=== PATIENT | female | born 2000 | race Caucasian/White ===

== ENCOUNTER 2021-04-14 01:01 | Inpatient (IN) | payer BC ==
[2021-04-14] MEDS ORDERED: Acetaminophen 500 MG TAB ONE (01:19)
[2021-04-14] MEDS ORDERED: Vancomycin 1 GM/200 ML BAG ONE (01:46)
[2021-04-14] MEDS ORDERED: Benzonatate 100 MG CAP ONE (02:15)
[2021-04-14] MEDS ORDERED: Senokot S 8.6-50 MG TAB PO PRN (08:06)
[2021-04-14] MEDS ORDERED: Acetaminophen 325 MG TAB PO PRN (08:06)
[2021-04-14] MEDS ORDERED: Enoxaparin Sodium 40 MG/0.4 ML SYRINGE ONE (12:47)
[2021-04-14] MEDS: Enoxaparin Sodium 40 MG/0.4 ML SYRINGE SC SCH (13:08)
[2021-04-14] MEDS ORDERED: cefTRIAXone\\ROCEPHIN 1 GM VIAL ONE (13:24)
[2021-04-14 13:46] LABS: #Eosinphils 0.1 thou/uL (0.0-0.7); #Lymphocytes 0.9 thou/uL (1.20-3.40); #Monocytes 0.9 thou/uL (0.11-0.59); #Neutrophils 5.2 thou/uL (1.40-6.50); %Basophils 0.3 % (0.0-1.0); %Eosinophils 1.2 % (0.0-10.0); %Lymphocytes 12.9 % (28.0-48.0); %Monocytes 12.1 % (0.0-4.0); %Neutrophils 73.5 % (31.0-61.0); Hemoglobin 8.3 g/dL (12.0-16.0); Mean Corpuscular HGB CONC 33.3 g/dL (32.0-36.0); Mean Corpuscular Hemoglobin 27.6 pg (25.0-35.0); Mean Corpuscular Volume 82.9 fL (78.0-98.0); Mean Platelet Volume 10.7 fL (7.4-10.4); Platelet Count 158 thou/uL (130-400); RBC Distribution Width 16.2 % (11.5-14.5); White Blood Cell (WBC) Count 7.1 thou/uL (4.8-10.8)
[2021-04-14] MEDS ORDERED: Azithromycin 500 MG in Sodium Chloride 0.9% 250 ML 250 ML IVPB SCH (14:00)
[2021-04-14 14:10] LABS: ALT (SGPT) 8 U/L (8-55); AST (SGOT) 15 U/L (5-30); Albumin 1.8 g/dL (3.5-5.0); Alkaline Phosphatase 41 U/L (40-100); Anion Gap 11 mmol/L (10-20); BUN (Urea Nitrogen) 26 mg/dL (8.4-21.0); Bilirubin, Total 0.2 mg/dL (0.2-1.2); CRP (Inflammatory) 12.42 mg/dL (= or < 0.5); Calc. Creatinine Clearance 0 mL/min (70-130); Calcium 7.5 mg/dL (7.8-10.44); Carbon Dioxide 22 mmol/L (22-29); Chloride 109 mmol/L (98-107); Globulin 2.7 g/dL (2.4-3.5); Glucose 91 mg/dL (70-105); Potassium 3.9 mmol/L (3.5-5.1); Protein, Total 4.5 g/dL (6.0-8.3); Sodium 138 mmol/L (136-145)
[2021-04-14] MEDS ORDERED: Azithromycin 500 MG VIAL ONE (14:13)
[2021-04-14] MEDS: Sodium Chloride 0.9% 1,000 ML IV SCH (14:20)
[2021-04-14] MEDS ORDERED: Ondansetron PF 4 MG/2 ML Vial ONE (14:36)
[2021-04-14] MEDS ORDERED: Ondansetron PF 4 MG/2 ML Vial IVP SCH (14:45)
[2021-04-14 17:40] VITALS: BMI 25.7
[2021-04-14] MEDS ORDERED: methylPREDNISolone Sod Succ/PF 125 MG/2 ML VIAL IVP SCH (18:45)
[2021-04-15] MEDS: Sodium Chloride 0.9% 1,000 ML IV SCH ×2 (00:35→15:05)
[2021-04-15 04:55] LABS: #Basophils 0.1 thou/uL (0.0-0.2); #Lymphocytes 0.5 thou/uL (1.20-3.40); #Monocytes 0.2 thou/uL (0.11-0.59); #Neutrophils 5.2 thou/uL (1.40-6.50); %Basophils 1.2 % (0.0-1.0); %Eosinophils 0.2 % (0.0-10.0); %Lymphocytes 8.3 % (28.0-48.0); %Monocytes 3.6 % (0.0-4.0); %Neutrophils 86.7 % (31.0-61.0); Hemoglobin 10.1 g/dL (12.0-16.0); Mean Corpuscular HGB CONC 32.8 g/dL (32.0-36.0); Mean Corpuscular Hemoglobin 27.5 pg (25.0-35.0); Mean Corpuscular Volume 83.8 fL (78.0-98.0); Mean Platelet Volume 10.9 fL (7.4-10.4); Platelet Count 207 thou/uL (130-400); Red Blood Cell (RBC) Count 3.69 mill/uL (4.00-5.20)
[2021-04-15 05:19] LABS: Anion Gap 14 mmol/L (10-20); BUN (Urea Nitrogen) 31 mg/dL (8.4-21.0); Calc. Creatinine Clearance 53 mL/min (70-130); Calcium 7.8 mg/dL (7.8-10.44); Carbon Dioxide 20 mmol/L (22-29); Chloride 110 mmol/L (98-107); Glucose 103 mg/dL (70-105); Potassium 4.4 mmol/L (3.5-5.1); Sodium 140 mmol/L (136-145)
[2021-04-15] MEDS: Azithromycin 250 MG TAB PO SCH (09:15)
[2021-04-15] MEDS: Enoxaparin Sodium 40 MG/0.4 ML SYRINGE SC SCH (09:16)
[2021-04-15] MEDS: methylPREDNISolone Sod Succ/PF 125 MG/2 ML VIAL IVP SCH (09:16)
[2021-04-15 11:22] LABS: Creatinine, Urine 341.91 mg/dL (47-110)
[2021-04-15] MEDS: cefTRIAXone\\ROCEPHIN 1 GM in Sodium Chloride 0.9% 100 ML IVPB SCH (13:58)
[2021-04-15] MEDS ORDERED: FLU VACC QS2021-22(6MOS UP)/PF 60 MCG/0.5 ML SYRINGE IM ONE (18:30)
[2021-04-15 18:41] LABS: ANA Symphony (Qualitative) POSITIVE (Negative); ANA Symphony (Quantitative) Greater than 32.0 Ratio (< 0.7 Negative); CENP IgG Antibody Less than 0.4 EliAU/mL (<7 Negative); Jo-1 IgG Antibody Less than 0.3 EliAU/mL (<7 Negative); RNP70 IgG Antibody Less than 0.3 EliAU/mL (<7 Negative); SSA/Ro IgG Antibody Greater than 240.0 EliAU/mL (<7 Negative); SSB/La IgG Antibody 1.4 EliAU/mL (<7 Negative); Scleroderma-70 IgG Antibody 1.7 EliAU/mL (<7 Negative); Smith D IgG Antibody 0.9 EliAU/mL (<7 Negative)
[2021-04-15] MEDS: Sodium Bicarbonate Tab 325 MG TAB PO SCH (21:02)
[2021-04-15] MEDS ORDERED: Albumin 25% 25 GM/100 ML BOT IVPB SCH (21:15)
[2021-04-15 22:08] LABS: Bacteria/HPF 4+ HPF (None Seen); Bilirubin Negative (Negative); Blood, Urine 2+ (Negative); Clarity Turbid (Clear); Glucose, Urine (Dipstick) Normal (Negative); Ketone, Urine Negative (Negative); Leukocyte 75 Leu/uL (Negative); Nitrite Negative (Negative); Protein, Urine (Dipstick) 200 mg/dL (Neg-Trace); RBC/HPF 21-50 HPF (0-3); Renal Epithelial 0-3 HPF (None Seen); Specific Gravity, Urine 1.022 (1.002-1.036); Squamous Epithelial 0-3 HPF (0-3); Urobilinogen Normal mg/dL (Less than 2); WBC/HPF Greater than 50 HPF (0-3); pH, Urine 5.5 (5.0-9.0)
[2021-04-15 22:09] LABS: Urine Culture Reflex Yes Yes
[2021-04-15 22:24] LABS: Creatinine, Urine 160.93 mg/dL (47-110)
[2021-04-16] MEDS: Guaifenesin DM 100-10/5 ML UDCUP PO PRN ×2 (06:03→10:12)
[2021-04-16] MEDS: Enoxaparin Sodium 40 MG/0.4 ML SYRINGE SC SCH (08:52)
[2021-04-16] MEDS: Azithromycin 250 MG TAB PO SCH (08:52)
[2021-04-16] MEDS: Sodium Bicarbonate Tab 325 MG TAB PO SCH ×2 (08:52→19:45)
[2021-04-16] MEDS: methylPREDNISolone Sod Succ/PF 125 MG/2 ML VIAL IVP SCH (08:53)
[2021-04-16] MEDS ORDERED: methylPREDNISolone Sod Succ/PF 125 MG/2 ML VIAL IVP SCH (09:45)
[2021-04-16] MEDS ORDERED: Fentanyl 100 MCG/2 ML VIAL ONE (12:25)
[2021-04-16] MEDS ORDERED: cefTRIAXone\\ROCEPHIN 1 GM VIAL ONE (12:53)
[2021-04-16] MEDS ORDERED: Sodium Chloride 0.9% 100 ML ONE (12:53)
[2021-04-16] MEDS ORDERED: Midazolam HCl 2 mg/2 ml Vial ONE (12:56)
[2021-04-16] MEDS: cefTRIAXone\\ROCEPHIN 1 GM in Sodium Chloride 0.9% 100 ML IVPB SCH (13:00)
[2021-04-16] MEDS ORDERED: Lidocaine 1% PF 5 ML VIAL ONE (13:21)
[2021-04-16] MEDS ORDERED: Rocuronium Bromide 10 MG/ML (10ML VIAL) ONE (13:21)
[2021-04-16] MEDS ORDERED: Dexamethasone 20 MG/5 ML VIAL ONE (13:21)
[2021-04-16] MEDS ORDERED: PROPOFOL 200 MG/20 ML VIAL ONE (13:21)
[2021-04-16] MEDS ORDERED: Ondansetron PF 4 MG/2 ML Vial ONE (13:21)
[2021-04-16] MEDS ORDERED: hydrALAZINE 20 MG/ML VIAL ONE (13:49)
[2021-04-16] MEDS ORDERED: HYDROmorphone 0.5 MG/0.5 ML SYRINGE ONE (14:16)
[2021-04-16] MEDS ORDERED: HYDROmorphone 2 MG/ML VIAL SLOW IVP PRN (14:24)
[2021-04-16] MEDS ORDERED: Promethazine HCl 25 MG/ML VIAL IVPB PRN (14:24)
[2021-04-16] MEDS ORDERED: Ondansetron HCl/PF 4 MG/2 ML Vial IVP PRN (14:24)
[2021-04-16] MEDS ORDERED: Promethazine HCl 25 MG/ML VIAL IM PRN (14:24)
[2021-04-16] MEDS ORDERED: HYDROcodone/Acetaminophen 5/325 mg Tablet PO PRN (15:02)
[2021-04-16] MEDS ORDERED: Fentanyl 100 MCG/2 ML VIAL SLOW IVP PRN (15:02)
[2021-04-16 15:31] LABS: Fluid, Glucose 120 mg/dL (Not Available); Fluid, LDH 241 U/L (Not Available)
[2021-04-16 15:35] LABS: RBC Count-Automated (BF) 395 /cu.mm; WBC/Nucleated-Auto (BF) 10 uL
[2021-04-16 15:57] LABS: #Lymphocytes 0.8 thou/uL (1.20-3.40); #Monocytes 0.2 thou/uL (0.11-0.59); #Neutrophils 14.5 thou/uL (1.40-6.50); %Basophils 0.1 % (0.0-1.0); %Eosinophils 0.2 % (0.0-10.0); %Lymphocytes 4.9 % (28.0-48.0); %Monocytes 1.2 % (0.0-4.0); %Neutrophils 93.7 % (31.0-61.0); Hemoglobin 9.6 g/dL (12.0-16.0); Mean Corpuscular HGB CONC 32.7 g/dL (32.0-36.0); Mean Corpuscular Volume 82.3 fL (78.0-98.0); Mean Platelet Volume 9.4 fL (7.4-10.4); Platelet Count 343 thou/uL (130-400); RBC Distribution Width 16.4 % (11.5-14.5); Red Blood Cell (RBC) Count 3.54 mill/uL (4.00-5.20); White Blood Cell (WBC) Count 15.5 thou/uL (4.8-10.8)
[2021-04-16 16:02] LABS: Anion Gap 13 mmol/L (10-20); BUN (Urea Nitrogen) 37 mg/dL (8.4-21.0); Calc. Creatinine Clearance 61 mL/min (70-130); Calcium 7.9 mg/dL (7.8-10.44); Carbon Dioxide 20 mmol/L (22-29); Chloride 116 mmol/L (98-107); Glucose 133 mg/dL (70-105); Potassium 4.4 mmol/L (3.5-5.1); Sodium 145 mmol/L (136-145)
[2021-04-16 16:11] LABS: PTT 19.2 sec (22.9-36.1)
[2021-04-16 16:14] LABS: BF Color Yellow; Body Fluid Source Pericardial Fluid; Clarity Clear (Clear); Tube # EDTA
[2021-04-16 16:17] LABS: BF Segmented Neutrophils 9 %; Cell Count Non Hematic 54 %; Lymphocytes 37 %
[2021-04-16 16:46] LABS: Albumin 2.3 g/dL (3.5-5.0); Cardiac Risk 11.3 (Less than 4.5); Cholesterol 270 mg/dl (< 200 Desired); HDL Cholesterol 24 mg/dL (>60 Neg Risk); LDL Cholesterol, Calculated 193 mg/dL; Phosphorus 4.8 mg/dL (2.3-4.7); Triglycerides 267 mg/dL (Less than 150)
[2021-04-16] MEDS: HYDROcodone/Acetaminophen 5/325 mg Tablet PO PRN ×2 (16:55→20:46)
[2021-04-16] MEDS ORDERED: Albumin 25% 25 GM/100 ML BOT IVPB SCH (17:00)
[2021-04-16] MEDS ORDERED: Morphine 4 MG/ML VIAL SLOW IVP PRN (20:30)
[2021-04-16] MEDS: Morphine 2 MG/ML VIAL SLOW IVP PRN (20:35)
[2021-04-16] MEDS ORDERED: Ondansetron PF 4 MG/2 ML Vial IVP PRN (20:46)
[2021-04-17] MEDS: HYDROcodone/Acetaminophen 5/325 mg Tablet PO PRN ×3 (01:02→21:38)
[2021-04-17] MEDS: Morphine 2 MG/ML VIAL SLOW IVP PRN (08:54)
[2021-04-17] MEDS ORDERED: Carvedilol 6.25 MG TAB PO SCH (09:00)
[2021-04-17] MEDS: Enoxaparin Sodium 40 MG/0.4 ML SYRINGE SC SCH (09:02)
[2021-04-17] MEDS: methylPREDNISolone Sod Succ/PF 125 MG/2 ML VIAL IVP SCH (09:03)
[2021-04-17] MEDS: Azithromycin 250 MG TAB PO SCH (09:53)
[2021-04-17] MEDS: Sodium Bicarbonate Tab 325 MG TAB PO SCH ×2 (09:54→21:37)
[2021-04-17] MEDS ORDERED: ALPRAZolam 0.25 MG TAB PO SCH (10:30)
[2021-04-17] MEDS ORDERED: ALPRAZolam 0.25 MG TAB PO PRN (11:19)
[2021-04-17 14:30] LABS: Prothrombin Time 13.3 sec (12.0-14.7)
[2021-04-17 14:31] LABS: PTT 25.6 sec (22.9-36.1)
[2021-04-17 14:42] LABS: Albumin 2.3 g/dL (3.5-5.0); Anion Gap 10 mmol/L (10-20); BUN (Urea Nitrogen) 36 mg/dL (8.4-21.0); BUN/Creatinine Ratio 21.95; Calc. Creatinine Clearance 71 mL/min (70-130); Calcium 8.2 mg/dL (7.8-10.44); Carbon Dioxide 21 mmol/L (22-29); Chloride 110 mmol/L (98-107); Glucose 132 mg/dL (70-105); Phosphorus 5.2 mg/dL (2.3-4.7); Sodium 137 mmol/L (136-145)
[2021-04-17 14:44] LABS: Iron Binding Capacity, Total 164 mcg/dL (265-497)
[2021-04-17 14:47] LABS: Iron Less than 8 ug/dL (50-170)
[2021-04-17] MEDS: cefTRIAXone\\ROCEPHIN 1 GM in Sodium Chloride 0.9% 100 ML IVPB SCH (15:39)
[2021-04-17] MEDS ORDERED: NIFEdipine XL 30 MG TAB PO SCH ×2 (16:30→16:45)
[2021-04-18] MEDS ORDERED: Metoprolol Tartrate 25 MG TAB PO SCH (00:24)
[2021-04-18 05:14] LABS: #Lymphocytes 1.4 thou/uL (1.20-3.40); #Monocytes 1.7 thou/uL (0.11-0.59); #Neutrophils 10.6 thou/uL (1.40-6.50); %Basophils 0.2 % (0.0-1.0); %Eosinophils 0.2 % (0.0-10.0); %Lymphocytes 10.4 % (28.0-48.0); %Monocytes 12.2 % (0.0-4.0); Hemoglobin 8.4 g/dL (12.0-16.0); Mean Corpuscular HGB CONC 31.8 g/dL (32.0-36.0); Mean Corpuscular Hemoglobin 26.8 pg (25.0-35.0); Mean Corpuscular Volume 84.1 fL (78.0-98.0); Mean Platelet Volume 9.3 fL (7.4-10.4); Platelet Count 273 thou/uL (130-400); RBC Distribution Width 16.4 % (11.5-14.5); Red Blood Cell (RBC) Count 3.15 mill/uL (4.00-5.20); White Blood Cell (WBC) Count 13.8 thou/uL (4.8-10.8)
[2021-04-18 05:34] LABS: Albumin 1.9 g/dL (3.5-5.0); Anion Gap 8 mmol/L (10-20); BUN (Urea Nitrogen) 38 mg/dL (8.4-21.0); BUN/Creatinine Ratio 25.85; Calc. Creatinine Clearance 80 mL/min (70-130); Calcium 7.8 mg/dL (7.8-10.44); Carbon Dioxide 23 mmol/L (22-29); Chloride 111 mmol/L (98-107); Glucose 109 mg/dL (70-105); Phosphorus 4.9 mg/dL (2.3-4.7); Potassium 3.8 mmol/L (3.5-5.1); Sodium 138 mmol/L (136-145)
[2021-04-18] MEDS ORDERED: NIFEdipine XL 60 MG TAB PO SCH (06:15)
[2021-04-18] MEDS ORDERED: NIFEdipine XL 30 MG TAB PO SCH (09:00)
[2021-04-18] MEDS: Sodium Bicarbonate Tab 325 MG TAB PO SCH ×2 (09:09→21:22)
[2021-04-18] MEDS: Azithromycin 250 MG TAB PO SCH (09:10)
[2021-04-18] MEDS: methylPREDNISolone Sod Succ/PF 125 MG/2 ML VIAL IVP SCH (09:11)
[2021-04-18] MEDS: HYDROcodone/Acetaminophen 5/325 mg Tablet PO PRN ×3 (09:43→21:23)
[2021-04-18 13:11] LABS: Creatinine, Urine 169.44 mg/dL (47-110)
[2021-04-18] MEDS: cefTRIAXone\\ROCEPHIN 1 GM in Sodium Chloride 0.9% 100 ML IVPB SCH (14:12)
[2021-04-18] MEDS ORDERED: Iron, Sodium Ferric Gluconate 250 MG in Sodium Chloride 0.9% 250 ML 250 ML IVPB SCH (15:15)
[2021-04-18 20:00] LABS: 24 Hr Creatinine 1482.6 mg/24 hr (710-1650)
[2021-04-19 05:24] LABS: Albumin 1.9 g/dL (3.5-5.0); Anion Gap 11 mmol/L (10-20); BUN (Urea Nitrogen) 48 mg/dL (8.4-21.0); BUN/Creatinine Ratio 32.88; Calc. Creatinine Clearance 80 mL/min (70-130); Carbon Dioxide 23 mmol/L (22-29); Chloride 110 mmol/L (98-107); Glucose 118 mg/dL (70-105); Phosphorus 5.3 mg/dL (2.3-4.7); Potassium 3.9 mmol/L (3.5-5.1); Sodium 140 mmol/L (136-145)
[2021-04-19] MEDS ORDERED: Midazolam HCl 2 mg/2 ml Vial ONE (08:20)
[2021-04-19] MEDS ORDERED: Sodium Bicarbonate 2.5 MEQ/5 ML VIAL ONE (08:20)
[2021-04-19] MEDS ORDERED: Fentanyl 100 MCG/2 ML VIAL ONE (08:20)
[2021-04-19] MEDS ORDERED: methylPREDNISolone Sod Succ/PF 125 MG/2 ML VIAL IVP SCH (10:15)
[2021-04-19] MEDS ORDERED: Acetaminophen 500 MG TAB PO PRN (10:16)
[2021-04-19] MEDS: Ferrous Gluconate 324 MG TAB PO SCH (10:57)
[2021-04-19] MEDS: Sodium Bicarbonate Tab 325 MG TAB PO SCH ×2 (10:57→20:03)
[2021-04-19] MEDS: NIFEdipine XL 60 MG TAB PO SCH (10:58)
[2021-04-19] MEDS: Guaifenesin DM 100-10/5 ML UDCUP PO PRN ×2 (10:58→20:05)
[2021-04-19] MEDS: HYDROcodone/Acetaminophen 5/325 mg Tablet PO PRN ×3 (11:05→20:05)
[2021-04-19 12:35] LABS: dsDNA IgG Antibody Greater than 379.0 IU/mL (<10 Negative)
[2021-04-19] MEDS: cefTRIAXone\\ROCEPHIN 1 GM in Sodium Chloride 0.9% 100 ML IVPB SCH (16:22)
[2021-04-19] MEDS: Hydroxychloroquine Sulfate 200 MG TAB PO SCH (20:04)
[2021-04-20] MEDS: Sodium Bicarbonate Tab 325 MG TAB PO SCH ×2 (08:48→21:09)
[2021-04-20] MEDS: Ferrous Gluconate 324 MG TAB PO SCH (08:48)
[2021-04-20] MEDS: predniSONE 20 MG TAB PO SCH ×3 (08:49→21:10)
[2021-04-20] MEDS: Enoxaparin Sodium 40 MG/0.4 ML SYRINGE SC SCH (08:49)
[2021-04-20] MEDS: Hydroxychloroquine Sulfate 200 MG TAB PO SCH ×2 (08:49→21:09)
[2021-04-20] MEDS: NIFEdipine XL 60 MG TAB PO SCH (08:50)
[2021-04-20 11:16] LABS: #Basophils 0.1 thou/uL (0.0-0.2); #Eosinphils 0.1 thou/uL (0.0-0.7); #Lymphocytes 1.9 thou/uL (1.20-3.40); #Monocytes 1.2 thou/uL (0.11-0.59); #Neutrophils 14.5 thou/uL (1.40-6.50); %Basophils 0.5 % (0.0-1.0); %Eosinophils 0.5 % (0.0-10.0); %Lymphocytes 10.4 % (28.0-48.0); %Monocytes 6.8 % (0.0-4.0); %Neutrophils 81.8 % (31.0-61.0); Hemoglobin 8.7 g/dL (12.0-16.0); Mean Corpuscular HGB CONC 31.7 g/dL (32.0-36.0); Mean Corpuscular Hemoglobin 26.4 pg (25.0-35.0); Mean Corpuscular Volume 83.4 fL (78.0-98.0); Mean Platelet Volume 8.5 fL (7.4-10.4); Platelet Count 383 thou/uL (130-400); RBC Distribution Width 16.9 % (11.5-14.5); Red Blood Cell (RBC) Count 3.29 mill/uL (4.00-5.20); White Blood Cell (WBC) Count 17.7 thou/uL (4.8-10.8)
[2021-04-20 11:33] LABS: Anion Gap 10 mmol/L (10-20); BUN (Urea Nitrogen) 46 mg/dL (8.4-21.0); Calc. Creatinine Clearance 113 mL/min (70-130); Calcium 8.1 mg/dL (7.8-10.44); Carbon Dioxide 23 mmol/L (22-29); Chloride 112 mmol/L (98-107); Glucose 106 mg/dL (70-105); Potassium 3.4 mmol/L (3.5-5.1); Sodium 142 mmol/L (136-145)
[2021-04-20 11:34] LABS: Albumin 2.1 g/dL (3.5-5.0); Anion Gap 10 mmol/L (10-20); BUN (Urea Nitrogen) 46 mg/dL (8.4-21.0); BUN/Creatinine Ratio 43.81; Calc. Creatinine Clearance 114 mL/min (70-130); Carbon Dioxide 23 mmol/L (22-29); Chloride 112 mmol/L (98-107); Glucose 105 mg/dL (70-105); Phosphorus 4.3 mg/dL (2.3-4.7); Potassium 3.5 mmol/L (3.5-5.1); Sodium 141 mmol/L (136-145)
[2021-04-20] MEDS: cefTRIAXone\\ROCEPHIN 1 GM in Sodium Chloride 0.9% 100 ML IVPB SCH (13:43)
[2021-04-20] MEDS ORDERED: Spironolactone 25 MG TAB PO SCH (17:45)
[2021-04-20] MEDS ORDERED: Torsemide 10 MG TAB PO SCH (17:45)
[2021-04-20] MEDS: Mycophenolate 250 MG CAP PO SCH (21:09)
[2021-04-21 05:16] LABS: #Eosinphils 0.1 thou/uL (0.0-0.7); #Lymphocytes 1.4 thou/uL (1.20-3.40); #Monocytes 0.7 thou/uL (0.11-0.59); #Neutrophils 13.1 thou/uL (1.40-6.50); %Eosinophils 0.4 % (0.0-10.0); %Lymphocytes 9.2 % (28.0-48.0); %Monocytes 4.7 % (0.0-4.0); %Neutrophils 85.7 % (31.0-61.0); Hemoglobin 8.3 g/dL (12.0-16.0); Mean Corpuscular HGB CONC 32.2 g/dL (32.0-36.0); Mean Corpuscular Hemoglobin 26.7 pg (25.0-35.0); Mean Corpuscular Volume 82.8 fL (78.0-98.0); Mean Platelet Volume 8.5 fL (7.4-10.4); Platelet Count 348 thou/uL (130-400); RBC Distribution Width 16.6 % (11.5-14.5); Red Blood Cell (RBC) Count 3.11 mill/uL (4.00-5.20); White Blood Cell (WBC) Count 15.3 thou/uL (4.8-10.8)
[2021-04-21 05:29] LABS: Anion Gap 10 mmol/L (10-20); BUN (Urea Nitrogen) 42 mg/dL (8.4-21.0); BUN/Creatinine Ratio 41.18; Calc. Creatinine Clearance 117 mL/min (70-130); Calcium 7.9 mg/dL (7.8-10.44); Carbon Dioxide 23 mmol/L (22-29); Chloride 111 mmol/L (98-107); Glucose 110 mg/dL (70-105); Phosphorus 4.4 mg/dL (2.3-4.7); Potassium 3.8 mmol/L (3.5-5.1); Sodium 140 mmol/L (136-145)
[2021-04-21] MEDS ORDERED: Iron, Sodium Ferric Gluconate 250 MG in Sodium Chloride 0.9% 250 ML 250 ML IVPB SCH (08:00)
[2021-04-21] MEDS ORDERED: Lisinopril 20 MG TAB PO SCH ×3 (09:00→21:00)
[2021-04-21] MEDS: Spironolactone 25 MG TAB PO SCH (09:05)
[2021-04-21] MEDS: Enoxaparin Sodium 40 MG/0.4 ML SYRINGE SC SCH (09:06)
[2021-04-21] MEDS: Hydroxychloroquine Sulfate 200 MG TAB PO SCH ×2 (09:06→20:09)
[2021-04-21] MEDS: Mycophenolate 250 MG CAP PO SCH ×2 (09:07→20:10)
[2021-04-21] MEDS: predniSONE 20 MG TAB PO SCH ×3 (09:07→20:10)
[2021-04-21] MEDS: Sodium Bicarbonate Tab 325 MG TAB PO SCH ×2 (09:07→20:09)
[2021-04-21] MEDS: Ferrous Gluconate 324 MG TAB PO SCH (09:07)
[2021-04-21] MEDS: Torsemide 10 MG TAB PO SCH (11:40)
[2021-04-21] MEDS: cefTRIAXone\\ROCEPHIN 1 GM in Sodium Chloride 0.9% 100 ML IVPB SCH (12:05)
[2021-04-21 18:35] LABS: Anion Gap 11 mmol/L (10-20); BUN (Urea Nitrogen) 41 mg/dL (8.4-21.0); Calc. Creatinine Clearance 109 mL/min (70-130); Calcium 7.8 mg/dL (7.8-10.44); Carbon Dioxide 23 mmol/L (22-29); Chloride 111 mmol/L (98-107); Glucose 139 mg/dL (70-105); Potassium 3.8 mmol/L (3.5-5.1); Sodium 141 mmol/L (136-145)
[2021-04-22 04:50] LABS: Hemoglobin 8.3 g/dL (12.0-16.0); Mean Corpuscular HGB CONC 31.5 g/dL (32.0-36.0); Mean Corpuscular Hemoglobin 26.1 pg (25.0-35.0); Mean Corpuscular Volume 82.9 fL (78.0-98.0); Mean Platelet Volume 8.8 fL (7.4-10.4); Platelet Count 327 thou/uL (130-400); RBC Distribution Width 16.5 % (11.5-14.5); Red Blood Cell (RBC) Count 3.19 mill/uL (4.00-5.20); White Blood Cell (WBC) Count 18.2 thou/uL (4.8-10.8)
[2021-04-22 06:22] LABS: Band 2 % (5-11); Lymphocytes 11 % (28-48); MDiff Complete? YES; Neutrophil 87 % (31-61); Schistocytes SLIGHT = 2-5 cells (100X) (0-1/hpf)
[2021-04-22] MEDS: predniSONE 20 MG TAB PO SCH ×2 (08:13→20:14)
[2021-04-22] MEDS: Sodium Bicarbonate Tab 325 MG TAB PO SCH ×2 (08:13→20:14)
[2021-04-22] MEDS: Ferrous Gluconate 324 MG TAB PO SCH (08:14)
[2021-04-22] MEDS: Spironolactone 25 MG TAB PO SCH (08:14)
[2021-04-22] MEDS: Lisinopril 20 MG TAB PO SCH (08:15)
[2021-04-22] MEDS: Mycophenolate 250 MG CAP PO SCH ×2 (08:15→20:14)
[2021-04-22] MEDS: Hydroxychloroquine Sulfate 200 MG TAB PO SCH ×2 (08:16→20:14)
[2021-04-22] MEDS: Enoxaparin Sodium 40 MG/0.4 ML SYRINGE SC SCH (08:16)
[2021-04-22] MEDS: Torsemide 10 MG TAB PO SCH (08:16)
[2021-04-22] MEDS ORDERED: hydrALAZINE 20 MG/ML VIAL SLOW IVP SCH (12:00)
[2021-04-22] MEDS ORDERED: hydrALAZINE 20 MG/ML VIAL SLOW IVP PRN (12:14)
[2021-04-22] MEDS ORDERED: Morphine 4 MG/ML VIAL SLOW IVP PRN (12:30)
[2021-04-22] MEDS ORDERED: Iron, Sodium Ferric Gluconate 250 MG in Sodium Chloride 0.9% 250 ML 250 ML IVPB SCH (13:45)
[2021-04-22 16:55] LABS: Cardiolipin IgA Ab 2.2 APL-U/mL (<14 Negative); Cardiolipin IgG Ab 1.2 GPL-U/mL (<10 Negative); Cardiolipin IgM Ab 1.4 MPL-U/mL (<10 Negative); EliA APS New Method **** NEW METHOD ****; EliA RAS New Method **** NEW METHOD ****; Rheumatoid Factor IgM Antibody 2.1 IU/mL (<3.5 Negative); beta-2-Glycoprotein I IgA Ab 2.9 U/mL (<7 Negative); beta-2-Glycoprotein I IgM Abs Less than 2.9 U/mL (<7 Negative)
[2021-04-23 06:56] LABS: Anion Gap 11 mmol/L (10-20); BUN (Urea Nitrogen) 42 mg/dL (8.4-21.0); BUN/Creatinine Ratio 42.42; Calc. Creatinine Clearance 121 mL/min (70-130); Calcium 7.9 mg/dL (7.8-10.44); Carbon Dioxide 24 mmol/L (22-29); Chloride 111 mmol/L (98-107); Glucose 115 mg/dL (70-105); Potassium 3.9 mmol/L (3.5-5.1); Sodium 142 mmol/L (136-145)
[2021-04-23 08:53] VITALS: BP 148/97; TEMP 98.4
[2021-04-23] MEDS: Mycophenolate 250 MG CAP PO SCH (08:53)
[2021-04-23] MEDS: Lisinopril 20 MG TAB PO SCH (08:54)
[2021-04-23] MEDS: Ferrous Gluconate 324 MG TAB PO SCH (08:54)
[2021-04-23] MEDS: predniSONE 20 MG TAB PO SCH (08:54)
[2021-04-23] MEDS: Spironolactone 25 MG TAB PO SCH (08:54)
[2021-04-23] MEDS: Sodium Bicarbonate Tab 325 MG TAB PO SCH (08:55)
[2021-04-23] MEDS: Torsemide 10 MG TAB PO SCH (08:55)
[2021-04-23] MEDS: Hydroxychloroquine Sulfate 200 MG TAB PO SCH (08:56)
[2021-04-23] MEDS: Enoxaparin Sodium 40 MG/0.4 ML SYRINGE SC SCH (08:57)
[2021-04-23] MEDS ORDERED: Torsemide 10 MG TAB PO SCH (10:15)
[2021-04-24] MEDS ORDERED: Torsemide 20 MG TAB PO SCH (09:00)
[2021-04-24 14:24] LABS: DRVVT Confirm 32.9
== END 2021-04-23 14:00 | disposition home or self-care (01) | DRG 270 ==
LOC: ERS 01:01 → ERHOLD 03:34 → 2NO 17:33
PROVIDERS: ADMIT Student in an Organized Health Care Education/Training Program; ATTEND Internal Medicine
PROC: 0W9D0ZZ Drainage of Pericardial Cavity, Open Approach (ICD-10-PCS; principal; 2021-04-16)
PROC: 02HV33Z Insertion of Infusion Device into Superior Vena Cava, Percutaneous Approach (ICD-10-PCS; 2021-04-17)
PROC: 0TB13ZX Excision of Left Kidney, Percutaneous Approach, Diagnostic (ICD-10-PCS; 2021-04-19)
DX: I31.3 Pericardial effusion (noninflammatory) (principal); J18.9 Pneumonia, unspecified organism; N17.9 Acute kidney failure, unspecified; J90 Pleural effusion, not elsewhere classified; E87.2 Acidosis; M32.14 Glomerular disease in systemic lupus erythematosus; M06.9 Rheumatoid arthritis, unspecified; Z20.822 Contact with and (suspected) exposure to COVID-19; B97.0 Adenovirus as the cause of diseases classified elsewhere; F41.9 Anxiety disorder, unspecified; D63.1 Anemia in chronic kidney disease; E88.09 Other disorders of plasma-protein metabolism, not elsewhere classified; N18.9 Chronic kidney disease, unspecified; I12.9 Hypertensive chronic kidney disease with stage 1 through stage 4 chronic kidney disease, or unspecified chronic kidney disease; D50.9 Iron deficiency anemia, unspecified; Z79.899 Other long term (current) drug therapy; Z79.52 Long term (current) use of systemic steroids
CPT/HCPCS: 36415; 50200; 71045; 76770; 77012; 80048; 80053; 80061; 80069; 81001; 82040; 82570; 82728; 82945; 83520; 83540; 83550; 83605; 83615; 83735; 84100; 84156; 84300; 84681; 85025; 85060; 85610; 85613; 85652; 85730; 86038; 86140; 86146; 86147; 86160; 86225; 86235; 86850; 86880; 87040; 87070; 87077; 87086; 87186; 87205; 87324; 87449; 88112; 88305; 88329; 89051; 93005; 93010; 93306; 96374; J0360; J0456; J0696; J1100; J1170; J1650; J2250; J2270; J2405; J2704; J2916; J2930; J3010; J3370; J3490; J7050; J7512; J7517; P9047